=== PATIENT | female | born 2000 | race Caucasian/White ===

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

== ENCOUNTER 2019-03-06 12:34 | Emergency (ER) | payer OTHER ==
[~2019-03-06] VITALS: Ht 149.8 cm; Wt 49.4 kg
[~2019-03-06 12:34] MED LIST changes: +ZITHROMAX250 MG PO; +ZYRTEC10 MG PO
[2019-03-06 12:37] VITALS: BP 125/69
== END 2019-03-06 14:00 | disposition home or self-care (01) ==
LOC: ED 12:34
DX: R11.2 Nausea with vomiting, unspecified (principal); R19.7 Diarrhea, unspecified; Z88.1 Allergy status to other antibiotic agents; Z79.2 Long term (current) use of antibiotics; Z79.899 Other long term (current) drug therapy

== ENCOUNTER 2019-03-12 23:50 | Emergency (ER) | payer OTHER ==
[~2019-03-12] VITALS: Ht 149.8 cm; Wt 49.4 kg
[2019-03-12 23:55] VITALS: BP 111/65
[2019-03-13] MEDS ORDERED: TESSALON PERLE100 M1 PO (00:32)
== END 2019-03-13 01:37 | disposition home or self-care (01) ==
LOC: ED 23:50
DX: J06.9 Acute upper respiratory infection, unspecified (principal); Z88.1 Allergy status to other antibiotic agents; Z79.899 Other long term (current) drug therapy; Z79.2 Long term (current) use of antibiotics

== ENCOUNTER 2019-04-09 17:20 | Emergency (ER) | payer OTHER ==
[~2019-04-09] VITALS: Ht 149.8 cm; Wt 49.4 kg
[~2019-04-09 17:20] MED LIST changes: +TESSALON PERLE100 M1 PO
[2019-04-09 17:27] VITALS: BP 106/53
[2019-04-09] MEDS ORDERED: ZOFRAN4 MG PO (18:20)
== END 2019-04-09 18:23 | disposition home or self-care (01) ==
LOC: ED 17:20
DX: R19.7 Diarrhea, unspecified (principal); Z32.02 Encounter for pregnancy test, result negative; Z88.1 Allergy status to other antibiotic agents

== ENCOUNTER 2019-10-24 00:15 | Emergency (ER) | payer OTHER ==
[~2019-10-24] VITALS: Ht 149.8 cm; Wt 59.9 kg
[~2019-10-24 00:15] MED LIST changes: +CEPHALEXIN500 M1 PO; +ZOFRAN4 MG PO
[2019-10-24 00:25] VITALS: BP 125/78
[2019-10-24 00:51] LABS: CLARITY SL CLOUDY (CLEAR); COLOR YELLOW (YELLOW)
[2019-10-24 00:52] LABS: BILIRUBIN NEGATIVE (NEGATIVE); BLOOD 1+ (NEGATIVE); GLUCOSE NEGATIVE (NEGATIVE); KETONE NEGATIVE (NEGATIVE); SPECIFIC GRAVITY 1.025 (1.005-1.030); UROBILINOGEN 0.2 E.U./dl (0.2-1.0)
[2019-10-24 00:54] LABS: LEUKO ESTERASE 2+ (NEGATIVE); NITRITE NEGATIVE (NEGATIVE)
[2019-10-24 01:00] LABS: BACTERIA 1+; RBC 21-30 rbc/hpf (0-2); WBC 51-100 wbc/hpf (0-5)
== END 2019-10-24 01:24 | disposition home or self-care (01) ==
LOC: ED 00:15
PROVIDERS: Nurse Practitioner Family
DX: Z32.02 Encounter for pregnancy test, result negative (principal); Z79.899 Other long term (current) drug therapy; Z88.8 Allergy status to other drugs, medicaments and biological substances

== ENCOUNTER → 2020-01-23 | Outpatient (CLI) | payer OTHER | END | disposition home or self-care (01) | LOC: COVID19 14:37 | PROVIDERS: ATTEND Family Medicine | DX: Z20.828 Contact with and (suspected) exposure to other viral communicable diseases (principal) ==

== ENCOUNTER → 2020-02-21 | Outpatient (CLI) | payer OTHER | END | disposition home or self-care (01) | LOC: COVID19 14:44 | PROVIDERS: ATTEND Family Medicine | DX: U07.1 COVID-19 (principal) ==

== ENCOUNTER 2020-07-06 15:39 | Emergency (ER) | payer OTHER ==
[~2020-07-06] VITALS: Ht 403.8 cm; Wt 54.9 kg
[2020-07-06 16:02] VITALS: BP 101/67
[2020-07-06 17:51] LABS: BASO % 0.2 % (0.0-1.0); EOS # 0.1 10*3/uL (0.0-0.4); EOS % 0.9 % (1.0-4.0); HEMATOCRIT 39.6 % (37.0-47.0); LYMPH # 1.7 10*3/uL (1.3-4.4); LYMPH % 14.3 % (27.0-41.0); MEAN CELL VOLUME 84.1 fl (81.0-99.0); MEAN CORPUSCULAR HGB 27.4 pg (27.0-31.0); MEAN CORPUSCULAR HGB CONC 32.6 g/dl (33.0-37.0); MONO # 0.5 10*3/uL (0.1-1.0); NEUT # 9.4 10*3/uL (2.3-7.9); NEUT % 80.3 % (47.0-73.0); PLATELET COUNT AUTOMATED 221 10*3/uL (130-400); RED BLOOD COUNT 4.71 10*6/uL (4.10-5.10); RED CELL DISTRI WIDTH 12.6 % (0-14.5); WHITE BLOOD COUNT 11.7 10*3/uL (4.8-10.8)
[2020-07-06 17:58] LABS: BILIRUBIN Negative (Negative); BLOOD Negative (Negative); CLARITY Clear (Clear); COLOR Yellow (Yellow); GLUCOSE Negative (Negative); KETONE Negative (Negative); LEUKO ESTERASE 2+ (Negative); NITRITE Negative (Negative); PH 6.5 (4.5-8.0); UROBILINOGEN 0.2 E.U./dl (0.0-1.0)
[2020-07-06 18:06] LABS: ALKALINE PHOSPHATASE 49 U/L (45-117); BUN 11 mg/dl (7-24); CHLORIDE 106 mmol/L (98-107); CREATININE 0.78 mg/dL (0.55-1.02); LIPASE 96 U/L (73-393); SGOT/AST 7 IU/L (3-35); SGPT/ALT 16 U/L (12-78); SODIUM 139 mmol/L (136-145); TOTAL PROTEIN 7.7 gm/dL (6.4-8.2)
[2020-07-06 19:06] LABS: BACTERIA TRACE; RBC 0-2 rbc/hpf (0-2)
[2020-07-06] MEDS ORDERED: IBUPROFEN600 MG PO (19:37)
[2020-07-06] MEDS ORDERED: ZITHROMAX250 MG PO (19:37)
== END 2020-07-06 20:00 | disposition home or self-care (01) ==
LOC: ED 15:39
PROVIDERS: Physician Assistant
DX: J02.0 Streptococcal pharyngitis (principal); F17.200 Nicotine dependence, unspecified, uncomplicated; Z79.899 Other long term (current) drug therapy; Z79.82 Long term (current) use of aspirin; Z88.1 Allergy status to other antibiotic agents

== ENCOUNTER 2021-06-08 14:08 | Emergency (ER) | payer OTHER ==
[~2021-06-08 14:08] MED LIST changes: +IBUPROFEN600 MG PO
[2021-06-08 14:12] VITALS: BP 113/59
[2021-06-08 14:56] LABS: BILIRUBIN Negative (Negative); BLOOD Negative (Negative); CLARITY Clear (Clear); COLOR Yellow (Yellow); GLUCOSE Negative (Negative); KETONE Negative (Negative); LEUKO ESTERASE 3+ (Negative); NITRITE Negative (Negative); PH 5.5 (4.5-8.0); UROBILINOGEN 0.2 E.U./dl (0.0-1.0)
[2021-06-08 15:14] LABS: BACTERIA 3+; EPITHELIAL CELLS 16-20; WBC 21-30 wbc/hpf (0-5)
== END 2021-06-08 15:22 | disposition home or self-care (01) ==
LOC: ED 14:08
PROVIDERS: Emergency Medicine
DX: O26.891 Other specified pregnancy related conditions, first trimester (principal); R11.0 Nausea; Z3A.01 Less than 8 weeks gestation of pregnancy; Z88.1 Allergy status to other antibiotic agents

== ENCOUNTER 2021-08-11 15:58 | Emergency (ER) | payer OTHER ==
[~2021-08-11] VITALS: Wt 47.6 kg
[2021-08-11 16:05] VITALS: BP 90/62
[2021-08-11 18:31] LABS: BASO % 0.3 % (0.0-1.0); EOS # 0.1 10*3/uL (0.0-0.4); HEMATOCRIT 37.6 % (37.0-47.0); LYMPH # 2.1 10*3/uL (1.3-4.4); LYMPH % 20.5 % (27.0-41.0); MEAN CORPUSCULAR HGB 23.6 pg (27.0-31.0); MEAN CORPUSCULAR HGB CONC 31.9 g/dl (33.0-37.0); MEAN PLATELET VOLUME 10.6 fl (9.6-12.3); MONO # 0.5 10*3/uL (0.1-1.0); MONO % 5.2 % (3.0-9.0); NEUT # 7.5 10*3/uL (2.3-7.9); NEUT % 72.8 % (47.0-73.0); PLATELET COUNT AUTOMATED 190 10*3/uL (130-400); RED BLOOD COUNT 5.08 10*6/uL (4.10-5.10); RED CELL DISTRI WIDTH 17.2 % (0-14.5); WHITE BLOOD COUNT 10.3 10*3/uL (4.8-10.8)
[2021-08-11 18:48] LABS: BILIRUBIN 1+ (Negative); BLOOD Trace-Lysed (Negative); CLARITY Turbid (Clear); COLOR Dark Yellow (Yellow); GLUCOSE Negative (Negative); KETONE 3+ (Negative); LEUKO ESTERASE 2+ (Negative); NITRITE Negative (Negative); PH 5.5 (4.5-8.0); SPECIFIC GRAVITY >= 1.030 (1.001-1.030)
[2021-08-11 18:56] LABS: BACTERIA 2+; WBC TNTC wbc/hpf (0-5)
[2021-08-11 18:59] LABS: ALKALINE PHOSPHATASE 45 U/L (45-117); BUN 11 mg/dl (7-24); CHLORIDE 101 mmol/L (98-107); CREATININE 0.68 mg/dL (0.55-1.02); POTASSIUM 3.9 mmol/L (3.5-5.1); SGOT/AST 22 IU/L (3-35); SGPT/ALT 40 U/L (12-78); SODIUM 134 mmol/L (136-145); TOTAL PROTEIN 7.8 gm/dL (6.4-8.2)
[2021-08-11] MEDS ORDERED: CEPHALEXIN500 M1 PO (19:29)
== END 2021-08-11 20:04 | disposition home or self-care (01) ==
LOC: ED 15:58
PROVIDERS: Nurse Practitioner Family
DX: O26.891 Other specified pregnancy related conditions, first trimester (principal); O21.0 Mild hyperemesis gravidarum; N39.0 Urinary tract infection, site not specified; Z3A.08 8 weeks gestation of pregnancy; Z88.1 Allergy status to other antibiotic agents

== ENCOUNTER 2021-12-28 15:46 | Emergency (ER) | payer OTHER ==
[~2021-12-28] VITALS: Wt 50.3 kg
[2021-12-28 15:59] VITALS: BP 98/55
[2021-12-28 16:14] LABS: BILIRUBIN Negative (Negative); BLOOD Trace-Lysed (Negative); CLARITY Cloudy (Clear); COLOR Yellow (Yellow); GLUCOSE Negative (Negative); KETONE Negative (Negative); LEUKO ESTERASE 3+ (Negative); NITRITE Negative (Negative)
[2021-12-28 16:32] LABS: BACTERIA 3+; EPITHELIAL CELLS 51-100; WBC TNTC wbc/hpf (0-5)
[2021-12-28 16:37] LABS: BASO % 0.2 % (0.0-1.0); EOS # 0.2 10*3/uL (0.0-0.4); EOS % 1.6 % (1.0-4.0); HEMATOCRIT 31.2 % (37.0-47.0); LYMPH # 1.6 10*3/uL (1.3-4.4); MEAN CELL VOLUME 81.9 fl (81.0-99.0); MEAN CORPUSCULAR HGB 27.3 pg (27.0-31.0); MEAN CORPUSCULAR HGB CONC 33.3 g/dl (33.0-37.0); MEAN PLATELET VOLUME 10.8 fl (9.6-12.3); MONO # 0.6 10*3/uL (0.1-1.0); MONO % 5.5 % (3.0-9.0); NEUT # 7.8 10*3/uL (2.3-7.9); NEUT % 76.2 % (47.0-73.0); PLATELET COUNT AUTOMATED 161 10*3/uL (130-400); RED BLOOD COUNT 3.81 10*6/uL (4.10-5.10); RED CELL DISTRI WIDTH 12.2 % (0-14.5); WHITE BLOOD COUNT 10.3 10*3/uL (4.8-10.8)
[2021-12-28 17:00] LABS: ALKALINE PHOSPHATASE 87 U/L (45-117); BUN 4 mg/dl (7-24); CHLORIDE 109 mmol/L (98-107); CREATININE 0.59 mg/dL (0.55-1.02); POTASSIUM 3.5 mmol/L (3.5-5.1); SGOT/AST 14 IU/L (3-35); SGPT/ALT 15 U/L (12-78); SODIUM 141 mmol/L (136-145); TOTAL PROTEIN 6.7 gm/dL (6.4-8.2)
[2021-12-28] MEDS ORDERED: TYLENOL325 M1 PO (17:27)
[2021-12-28] MEDS ORDERED: CEFPODOXIME PR100 M1 PO (17:27)
== END 2021-12-28 18:41 | disposition home or self-care (01) ==
LOC: ED 15:46
PROVIDERS: Emergency Medicine
DX: N39.0 Urinary tract infection, site not specified (principal); Z88.1 Allergy status to other antibiotic agents

== ENCOUNTER 2022-01-05 19:43 | Emergency (ER) | payer OTHER ==
[~2022-01-05] VITALS: Ht 149.8 cm; Wt 47.6 kg
[~2022-01-05 19:43] MED LIST changes: +CEFPODOXIME PR100 M1 PO; +TYLENOL325 M1 PO
[2022-01-05 21:34] VITALS: BP 106/66
== END 2022-01-05 21:35 | disposition left against medical advice (07) ==
LOC: ED 19:43
DX: R07.9 Chest pain, unspecified (principal); Z53.21 Procedure and treatment not carried out due to patient leaving prior to being seen by health care provider

== ENCOUNTER 2022-02-10 01:22 | Emergency (ER) | payer OTHER ==
[~2022-02-10] VITALS: Ht 152.4 cm; Wt 61.2 kg
[2022-02-10 01:39] VITALS: BP 105/67
== END 2022-02-10 01:59 | disposition left against medical advice (07) ==
LOC: ED 01:22
DX: Z53.21 Procedure and treatment not carried out due to patient leaving prior to being seen by health care provider (principal)